=== PATIENT | male | born 1995 | race African-American/Black ===

== ENCOUNTER 2022-03-21 01:49 | Emergency (ER) | payer MEDICAID ==
[~2022-03-21] VITALS: Ht 177.8 cm; Wt 88.0 kg
[2022-03-21 01:53] VITALS: BP 160/73
== END 2022-03-21 03:50 | disposition left against medical advice (07) ==
LOC: ER 01:59
DX: Z53.21 Procedure and treatment not carried out due to patient leaving prior to being seen by health care provider (principal)

== ENCOUNTER 2022-09-05 16:56 | Emergency (ER) | payer MEDICAID ==
[~2022-09-05] VITALS: Ht 177.8 cm; Wt 75.0 kg
[2022-09-05 17:01] VITALS: BP 149/97; PULSE 100; RESP 22; TEMP 97.7; O2SAT 99
[2022-09-05] MEDS ORDERED: MAGNESIUM/ALUMINUM HYDROXIDE/SIMETHICONE 30ML UDC PO ONE (18:30)
[2022-09-05] MEDS ORDERED: FAMOTIDINE 20MG TABLET PO ONE (18:30)
[2022-09-05] MEDS ORDERED: ONDANSETRON 4MG ODT PO ONE (18:30)
[2022-09-05] MEDS ORDERED: [UNRECOGNIZED DRUG - CODE] TP (18:38)
== END 2022-09-05 19:39 | disposition home or self-care (01) ==
LOC: ER 16:56
DX: L73.9 Follicular disorder, unspecified (principal); R21 Rash and other nonspecific skin eruption
CPT/HCPCS: 99284; Q0162

== ENCOUNTER 2023-06-09 15:19 | Emergency (ER) | payer MEDICAID ==
[~2023-06-09] VITALS: Ht 172.7 cm; Wt 70.3 kg
[~2023-06-09 15:19] MED LIST: [UNRECOGNIZED DRUG - CODE] TP
[2023-06-09 15:32] VITALS: O2SAT 100
[2023-06-09] MEDS: SODIUM CHLORIDE 0.9% 1,000 ML IV ONE (16:15)
[2023-06-09 16:26] LABS: CLARITY URINE CLEAR (CLEAR); COLOR URINE YELLOW (YELLOW); GLUCOSE URINE NEGATIVE (NEGATIVE); KETONES URINE TRACE (NEGATIVE); LEUKOCYTE ESTERASE URINE NEGATIVE (NEGATIVE); NITRITE URINE NEGATIVE (NEGATIVE); OCCULT BLOOD URINE NEGATIVE (NEGATIVE); PROTEIN URINE TRACE (NEGATIVE); SPECIFIC GRAVITY URINE 1.033 (1.005-1.030)
[2023-06-09 16:26] LABS: EOSINOPHILS % 0.1 % (0.0-5.0); LYMPHOCYTES % 21.4 % (20.0-50.0); MEAN CORPUSCULAR HEMOGLOBIN 28.2 pg (28.0-32.0); MEAN CORPUSCULAR HGB CONC 33.3 g/dL (31.0-37.0); MEAN CORPUSCULAR VOLUME 84.4 fL (80.0-94.0); NEUTROPHILS % 65.5 % (40.0-76.0); PLATELET 320 x1000/uL (130-400); RED BLOOD CELL COUNT 5.33 mill/uL (4.7-6.1); RED CELL DISTRIBUTION WIDTH 14.2 % (11.6-14.6); WHITE BLOOD COUNT 6.5 x1000/uL (4.5-11.0)
[2023-06-09 16:39] LABS: ALANINE AMINOTRANSFERASE 26 IU/L (10-49); ALBUMIN 4.8 g/dL (3.2-4.8); ASPARTATE AMINOTRANSFERASE 31 IU/L (<34); BILIRUBIN TOTAL 0.6 mg/dL (0.1-1.0); CALCIUM 9.5 mg/dL (8.7-10.4); CARBON DIOXIDE 27 mEq/L (21-32); CHLORIDE 103 mEq/L (98-107); CREATININE 1.5 mg/dL (0.6-1.3); GLUCOSE 75 mg/dL (70-105); PROTEIN TOTAL 7.7 g/dL (6.0-8.3); SODIUM 136 mEq/L (136-145); UREA NITROGEN BLOOD 19 mg/dL (9-23)
[2023-06-09 16:41] LABS: TROPONIN I HIGH SENSITIVITY < 4 ng/L (3.0-53)
[2023-06-09 16:42] LABS: ETHANOL BLOOD < 10 mg/dL (<10)
[2023-06-09] MEDS: LORAZEPAM 2MG/ML INJ IV ONE (16:42)
[2023-06-09 16:59] LABS: *AMPHETAMINES SCREEN URINE PRESUMPTIVE POSITIVE (NEGATIVE); *BARBITURATES SCREEN URINE NEGATIVE (NEGATIVE); *BENZODIAZEPINES SCREEN URINE NEGATIVE (NEGATIVE); *COCAINE SCREEN URINE NEGATIVE (NEGATIVE); CANNABINOID URINE SCREEN PRESUMPTIVE POSITIVE (NEGATIVE); ECSTASY MDMA SCREEN URINE CONF.TEST INDICATED (NEGATIVE); METHADONE URINE SCREEN Neg (NEGATIVE); OPIATES URINE SCREEN NEGATIVE (NEGATIVE); PHENCYCLIDINE URINE SCREEN NEGATIVE (NEGATIVE)
[2023-06-09] MEDS: ONDANSETRON HCL 4MG/2ML INJ IV ONE (17:06)
[2023-06-09 17:22] LABS: BACTERIA URINE TRACE; RBC URINE NONE SEEN /hpf (0-2); SQUAMOUS EPITHELIAL CELL URINE RARE /lpf (RARE/1+); WBC URINE 0-2 /hpf (0-2)
[2023-06-09 19:30] VITALS: BP 133/78; PULSE 92; RESP 18; TEMP 98.6
== END 2023-06-09 19:41 | disposition home or self-care (01) ==
LOC: ER 15:50
DX: F15.10 Other stimulant abuse, uncomplicated (principal)
CPT/HCPCS: 80053; 80305; 81003; 80320; 85025; 84484; 36415; 71045; 93005; 96361; 96374; 96375; 99285; J2060; J2405; J7030; G0480

== ENCOUNTER 2023-06-17 09:15 | Emergency (ER) | payer MEDICAID ==
[~2023-06-17] VITALS: Ht 172.7 cm; Wt 71.0 kg
[2023-06-17 09:22] VITALS: BP 152/103; PULSE 111; RESP 18; TEMP 98.7; O2SAT 100
[2023-06-17] MEDS: ONDANSETRON 4MG ODT PO ONE (11:15)
== END 2023-06-17 12:56 | disposition home or self-care (01) ==
LOC: ER 09:15
DX: F15.10 Other stimulant abuse, uncomplicated (principal)
CPT/HCPCS: 99283; 93005; Q0162